=== PATIENT | female | born 1990 | race Caucasian/White ===

== ENCOUNTER 2016-04-17 16:18 | Emergency (ER) | payer BC, OTHER ==
--- NOTE | 2016-04-17 17:55 | DIAGNOSTIC IMAGING REPORT ---
PROCEDURE: US OB 1ST TRIMESTER W/TRANSVAG INDICATION: ABNORMAL BLEEDING TECHNIQUE: Hdz scale, color, and spectral Doppler transabdominal and endovaginal sonographic images of the first trimester gravid uterus were obtained. COMPARISON: None. FINDINGS: TRANSABDOMINAL SCANS: Retroverted uterus. Normal kidneys. TRANSVAGINAL SCANS: The uterus measures 5.1 x 5 x 2.8 cm. Myometrium is unremarkable. Inhomogeneous endometrium measures 12 mm with vascularity suggestive of retained products of conception. Right ovary measures 3.8 x 1.5 x 2.3 cm and left ovary 3.2 x 1 x 1 cm. There is vascular flow to both ovaries. Small amount of free fluid in the pelvis. IMPRESSION: 1. Inhomogeneous vascular endometrium suggestive of retained products of conception 2. Small amount of free fluid the pelvis 3. Results discussed with Jocy Butler, PAC
--- NOTE | 2016-04-17 18:07 | ED ORDER SUMMARY ---
..... Patient: YOMI BOYLE OrderSheet [facility] VisitID: [id number] [place] [address] 26y, F Registration Date/Time: 04/17/2016 ORDER SHEET Weight: 56.6 kg (stated) Allergies: None GENERAL ORDERS: CBC w Diff Urgent (16:41 04/17/2016 EKoroleva P.A.-C) (Ack 16:49 NHouse ER Tech1) (17:02 JBoardley R.N.) CMP Urgent (16:41 04/17/2016 EKoroleva P.A.-C) (Ack 16:49 NHouse ER Tech1) (17:02 JBoardley R.N.) Serum Quantitative Urgent (16:41 04/17/2016 EKoroleva P.A.-C) (Ack 16:49 NHouse ER Tech1) (17:02 JBoardley R.N.) Pelvic Exam Setup (16:41 04/17/2016 EKoroleva P.A.-C) (Ack 16:49 NHouse ER Tech1) (17:02 JBoardley R.N.) US Pelvic Complete w Transvag (in midst of miscairrage) Urgent (16:41 04/17/2016 EKoroleva P.A.-C) (Ack 16:49 NHouse ER Tech1) (Cancelled: Other17:04 EKoroleva P.A.-C) US OB 1st Trimester w Transvag (nov) Urgent (17:05 04/17/2016 EKoroleva P.A.-C) (17:25 JBoardley R.N.) MEDICATION ORDERS: Misoprostol PO (Tablet 100 mcg) 800 mcg (NOW) (18:02 04/17/2016 EKoroleva P.A.-C) (18:40 JBoardley R.N.) Percocet PO 5/325 mg (HIGH ALERT MEDICATION) (18:03 04/17/2016 EKoroleva P.A.-C) (18:40 JBoardley R.N.) IV FLUIDS: IV NS : initial bolus 1000 mL (1000 mL/hr), then 1000 mL/hr for X1 (NOW); Ubaldo (16:40 04/17/2016 Patsy Flores) (Ack 16:42 Ceasar R.N.) (17:04 Ceasar R.N.) ORDER SHEET NOTES: [Electronically signed by Maine Butler P.A.-C (18:16 04/17/2016)] [Electronically signed by Shai Levy R.N. (18:54 04/17/2016)] [Electronically locked/signed by Shai Levy R.N. (18:54 04/17/2016)]
--- NOTE | 2016-04-17 18:07 | ED CLINICAL REPORT ---
Clinical Report - Physicians/Mid Levels [facility] [address] [place] [address] 04/17/2016 16:20 Patient: YOMI BOYLE Time Seen: 1645 Apr 17 2016. Arrived- By private vehicle. Historian- patient and spouse. HISTORY OF PRESENT ILLNESS Chief Complaint: PELVIC PAIN and VAGINAL BLEEDING. Still present. The patient has had abdominal pain. ( Patient reports vaginal bleeding over the last 7 days, after taking Cytotec last Saturday, orally 3 pills for reports of the time, reports she has continued to have cramping cramping. No fevers or chills. Last was repaired was early January, at the time when she was about 7 weeks IUP, possible demise, and miscarriage ensued, doesn't have miscarriage on her own within the week, however did not happen, last decision was made last SAT to start Cytotec.). REVIEW OF SYSTEMS No diarrhea. All systems otherwise negative, except as recorded above. PAST HISTORY Problems: Sick Contact. Spontaneous (Miscarriage). Additional Surgeries: Appendectomy. Medications: Oral. Motrin Oral. Allergies: None. SOCIAL HISTORY Never smoker. No alcohol use or drug use. ADDITIONAL NOTES The nursing notes have been reviewed. PHYSICAL EXAM Vital Signs: 04/17/2016 16:31 BP: 113/69. HR: 54. RR: 16. O2 saturation: 100%. Temp: 98.3 F. Pain level now: 0/10. Appearance: Alert. HEENT: Normal external inspection. ENT: Pharynx normal. Neck: Neck supple. CVS: Heart sounds normal. Respiratory: No respiratory distress. Breath sounds normal. Abdomen: Soft and nontender. No abdominal tenderness, rebound tenderness, distention or organomegaly. Back: No CVA tenderness. : Speculum and bimanual exam performed. External inspection normal. Slight vaginal bleeding, consisting of dark blood. Cervical os closed. No cervical dilation. Bimanual exam normal. Uterus not enlarged. No uterine tenderness. (chaperoned with ELECTRODE CLEANER/ Nurse). Skin: Skin warm. Normal skin color. Neuro: Oriented X 3. LABS, X-RAYS, AND EKG Pelvic Sonogram: IMPRESSION: 1. Inhomogeneous vascular endometrium suggestive of retained products of conception 2. Small amount of free fluid the pelvis 3. Results discussed with Jocy Butler, PAC = Electronically Final signed by:Ton Davis MD 04/17/2016 5:55:36 PM. Laboratory Tests: CBC w Diff: (JAMES: 04/17/2016 16:45) ( MsgRcvd 04/17/2016 17:08) Final results Test Result Flag Units (Reference) WHITE BLOOD COUNT 6.3 K/uL (4.5-11.5) RED BLOOD COUNT 4.50 M/uL (4.00-5.20) HEMOGLOBIN 14.0 gm/dL (12.0-16.0) HEMATOCRIT 40.8 % (36.0-46.0) MEAN CELL VOLUME 91 fL (80-100) MEAN CORPUSCULAR HGB 31 pg (26-34) MEAN CORPUSCULAR HGB CONC 34 g/dL (31-37) RED CELL DISTRIBUTION WIDTH 12.4 % (11.6-14.8) PLATELET COUNT 261 K/uL (150-400) NEUTROPHIL % 56.1 % (50-75) LYMPH % 36.5 % (25-40) MONO % 5.2 % (3-14) EOSINOPHIL % 1.8 % (0-4) BASOPHIL % 0.4 % (0-2) CMP: (JAMES: 04/17/2016 16:45) ( MsgRcvd 04/17/2016 17:24) Final results Test Result Flag Units (Reference) GLUCOSE 124 H mg/dL (70-110) BUN 12 mg/dL (7-18) CREATININE 0.7 mg/dL (0.6-1.3) Estimated GFR >60 mL/min Estimated GFR- >60 mL/min Note: Persistent reduction over 3 months in eGFR<60 mL/min/1.73 m2 defines CKD. Patients with eGFR values>=60 mL/min/1.73 m2 may also have CKD if evidence ofpersistent proteinuria. Additional information may be foundat www.kidney.org. SODIUM 142 mmol/L (136-145) POTASSIUM 3.3 L mmol/L (3.5-5.1) CHLORIDE 104 mmol/L (98-107) CARBON DIOXIDE 26 mmol/L (21-32) CALCIUM 9.4 mg/dL (8.5-10.1) TOTAL PROTEIN 8.1 g/dL (6.4-8.2) ALBUMIN 4.4 g/dL (3.3-5.0) BILIRUBIN, TOTAL 0.3 mg/dL (0.0-1.0) ALKALINE PHOSPHATASE 63 U/L (46-116) AST (SGOT) 22 U/L (15-37) ALT (SGPT) 38 U/L (12-78) BETA HCG, QUANTITATIVE 386 mIU/mL REFERENCE RANGE:Adult Males: <2 mIU/mLNon- Females: <6 mIU/mL Females:Approximate Approximate hCGGestational Age Range (mIU/mL) 0-1 week 0-501-2 weeks 40-3002-3 weeks 100-64056-8 weeks 500-26033-8 months 5,000-200,0002-3 months 10,000-100,0002nd trimester 3,000-50,0003rd trimester 1,000-50,000 . PROGRESS AND PROCEDURES Course of Care: Pt states she is O positive Case discussed with Dr. Davis, who believes products of conception have been retained. Case discussed with Dr. Bernard, who recommended Cytotec orally. Patient is hemodynamically stable. 04/17/2016 16:31 BP: 113/69. HR: 54. RR: 16. O2 saturation: 100%. Temp: 98.3 F. Pain level now: 0/10. Patient is stable. Physical exam findings are unchanged. Symptoms better. Patient/family counseled. Disposition: Discharged. Condition: good. CLINICAL IMPRESSION Incomplete spontaneous (miscarriage). Positive test in the emergency department.No complications. INSTRUCTIONS Do not work for three days. Warnings: Further evaluation is necessary. Prescription Medications: Zofran (orally disintegrating tablets) 4 mg: take 1 orally every 6 hours for 3 days as needed for nausea. Dispense fifteen (15). No refill. Substitution is permissible. Percocet 5 mg/325 mg: take 1 tablet orally every 6 hours as needed for pain. Dispense twenty (20). No refill. Substitution is permissible. Follow-up: Follow up with a specialist Saturday. Understanding of the discharge instructions verbalized. Follow-up with: Dulce Bernard DO, payroll machine operator, , [facility], [address] [place] [address] Follow up Saturday. (Electronically signed by Maine Butler P.A.-C 04/17/2016 18:16)
--- NOTE | 2016-04-17 18:07 | ED ORDER SUMMARY ---
..... Patient: YOMI BOYLE OrderSheet [facility] VisitID: [id number] [place] [address] 26y, F Registration Date/Time: 04/17/2016 ORDER SHEET Weight: 56.6 kg (stated) Allergies: None GENERAL ORDERS: CBC w Diff Urgent (16:41 04/17/2016 EKoroleva P.A.-C) (Ack 16:49 NHouse ER Tech1) (17:02 JBoardley R.N.) CMP Urgent (16:41 04/17/2016 EKoroleva P.A.-C) (Ack 16:49 NHouse ER Tech1) (17:02 JBoardley R.N.) Serum Quantitative Urgent (16:41 04/17/2016 EKoroleva P.A.-C) (Ack 16:49 NHouse ER Tech1) (17:02 JBoardley R.N.) Pelvic Exam Setup (16:41 04/17/2016 EKoroleva P.A.-C) (Ack 16:49 NHouse ER Tech1) (17:02 JBoardley R.N.) US Pelvic Complete w Transvag (in midst of miscairrage) Urgent (16:41 04/17/2016 EKoroleva P.A.-C) (Ack 16:49 NHouse ER Tech1) (Cancelled: Other17:04 EKoroleva P.A.-C) US OB 1st Trimester w Transvag (nov) Urgent (17:05 04/17/2016 EKoroleva P.A.-C) (17:25 JBoardley R.N.) MEDICATION ORDERS: Misoprostol PO (Tablet 100 mcg) 800 mcg (NOW) (18:02 04/17/2016 EKoroleva P.A.-C) (18:40 JBoardley R.N.) Percocet PO 5/325 mg (HIGH ALERT MEDICATION) (18:03 04/17/2016 EKoroleva P.A.-C) (18:40 JBoardley R.N.) IV FLUIDS: IV NS : initial bolus 1000 mL (1000 mL/hr), then 1000 mL/hr for X1 (NOW); Ubaldo (16:40 04/17/2016 Patsy Flores) (Ack 16:42 Ceasar R.N.) (17:04 Ceasar R.N.) ORDER SHEET NOTES: [Electronically signed by Maine Butler P.A.-C (18:16 04/17/2016)] [Electronically signed by Shai Levy R.N. (18:54 04/17/2016)] [Electronically locked/signed by Shai Levy R.N. (18:54 04/17/2016)]
--- NOTE | 2016-04-17 18:07 | ED CLINICAL REPORT ---
Clinical Report - Physicians/Mid Levels [facility] [address] [place] [address] 04/17/2016 16:20 Patient: YOMI BOYLE Time Seen: 1645 Apr 17 2016. Arrived- By private vehicle. Historian- patient and spouse. HISTORY OF PRESENT ILLNESS Chief Complaint: PELVIC PAIN and VAGINAL BLEEDING. Still present. The patient has had abdominal pain. ( Patient reports vaginal bleeding over the last 7 days, after taking Cytotec last Saturday, orally 3 pills for reports of the time, reports she has continued to have cramping cramping. No fevers or chills. Last was repaired was early January, at the time when she was about 7 weeks IUP, possible demise, and miscarriage ensued, doesn't have miscarriage on her own within the week, however did not happen, last decision was made last SAT to start Cytotec.). REVIEW OF SYSTEMS No diarrhea. All systems otherwise negative, except as recorded above. PAST HISTORY Problems: Sick Contact. Spontaneous (Miscarriage). Additional Surgeries: Appendectomy. Medications: Oral. Motrin Oral. Allergies: None. SOCIAL HISTORY Never smoker. No alcohol use or drug use. ADDITIONAL NOTES The nursing notes have been reviewed. PHYSICAL EXAM Vital Signs: 04/17/2016 16:31 BP: 113/69. HR: 54. RR: 16. O2 saturation: 100%. Temp: 98.3 F. Pain level now: 0/10. Appearance: Alert. HEENT: Normal external inspection. ENT: Pharynx normal. Neck: Neck supple. CVS: Heart sounds normal. Respiratory: No respiratory distress. Breath sounds normal. Abdomen: Soft and nontender. No abdominal tenderness, rebound tenderness, distention or organomegaly. Back: No CVA tenderness. : Speculum and bimanual exam performed. External inspection normal. Slight vaginal bleeding, consisting of dark blood. Cervical os closed. No cervical dilation. Bimanual exam normal. Uterus not enlarged. No uterine tenderness. (chaperoned with PIPE CLEANER/ Nurse). Skin: Skin warm. Normal skin color. Neuro: Oriented X 3. LABS, X-RAYS, AND EKG Pelvic Sonogram: IMPRESSION: 1. Inhomogeneous vascular endometrium suggestive of retained products of conception 2. Small amount of free fluid the pelvis 3. Results discussed with Jocy Butler, PAC = Electronically Final signed by:Ton Davis MD 04/17/2016 5:55:36 PM. Laboratory Tests: CBC w Diff: (JAMES: 04/17/2016 16:45) ( MsgRcvd 04/17/2016 17:08) Final results Test Result Flag Units (Reference) WHITE BLOOD COUNT 6.3 K/uL (4.5-11.5) RED BLOOD COUNT 4.50 M/uL (4.00-5.20) HEMOGLOBIN 14.0 gm/dL (12.0-16.0) HEMATOCRIT 40.8 % (36.0-46.0) MEAN CELL VOLUME 91 fL (80-100) MEAN CORPUSCULAR HGB 31 pg (26-34) MEAN CORPUSCULAR HGB CONC 34 g/dL (31-37) RED CELL DISTRIBUTION WIDTH 12.4 % (11.6-14.8) PLATELET COUNT 261 K/uL (150-400) NEUTROPHIL % 56.1 % (50-75) LYMPH % 36.5 % (25-40) MONO % 5.2 % (3-14) EOSINOPHIL % 1.8 % (0-4) BASOPHIL % 0.4 % (0-2) CMP: (JAMES: 04/17/2016 16:45) ( MsgRcvd 04/17/2016 17:24) Final results Test Result Flag Units (Reference) GLUCOSE 124 H mg/dL (70-110) BUN 12 mg/dL (7-18) CREATININE 0.7 mg/dL (0.6-1.3) Estimated GFR >60 mL/min Estimated GFR- >60 mL/min Note: Persistent reduction over 3 months in eGFR<60 mL/min/1.73 m2 defines CKD. Patients with eGFR values>=60 mL/min/1.73 m2 may also have CKD if evidence ofpersistent proteinuria. Additional information may be foundat www.kidney.org. SODIUM 142 mmol/L (136-145) POTASSIUM 3.3 L mmol/L (3.5-5.1) CHLORIDE 104 mmol/L (98-107) CARBON DIOXIDE 26 mmol/L (21-32) CALCIUM 9.4 mg/dL (8.5-10.1) TOTAL PROTEIN 8.1 g/dL (6.4-8.2) ALBUMIN 4.4 g/dL (3.3-5.0) BILIRUBIN, TOTAL 0.3 mg/dL (0.0-1.0) ALKALINE PHOSPHATASE 63 U/L (46-116) AST (SGOT) 22 U/L (15-37) ALT (SGPT) 38 U/L (12-78) BETA HCG, QUANTITATIVE 386 mIU/mL REFERENCE RANGE:Adult Males: <2 mIU/mLNon- Females: <6 mIU/mL Females:Approximate Approximate hCGGestational Age Range (mIU/mL) 0-1 week 0-501-2 weeks 40-3002-3 weeks 100-37404-1 weeks 500-86808-8 months 5,000-200,0002-3 months 10,000-100,0002nd trimester 3,000-50,0003rd trimester 1,000-50,000 . PROGRESS AND PROCEDURES Course of Care: Pt states she is O positive Case discussed with Dr. Davis, who believes products of conception have been retained. Case discussed with Dr. Bernard, who recommended Cytotec orally. Patient is hemodynamically stable. 04/17/2016 16:31 BP: 113/69. HR: 54. RR: 16. O2 saturation: 100%. Temp: 98.3 F. Pain level now: 0/10. Patient is stable. Physical exam findings are unchanged. Symptoms better. Patient/family counseled. Disposition: Discharged. Condition: good. CLINICAL IMPRESSION Incomplete spontaneous (miscarriage). Positive test in the emergency department.No complications. INSTRUCTIONS Do not work for three days. Warnings: Further evaluation is necessary. Prescription Medications: Zofran (orally disintegrating tablets) 4 mg: take 1 orally every 6 hours for 3 days as needed for nausea. Dispense fifteen (15). No refill. Substitution is permissible. Percocet 5 mg/325 mg: take 1 tablet orally every 6 hours as needed for pain. Dispense twenty (20). No refill. Substitution is permissible. Follow-up: Follow up with a specialist Saturday. Understanding of the discharge instructions verbalized. Follow-up with: Dulce Bernard DO, lithographing machine operator, , [facility], [address] [place] [address] Follow up Saturday. (Electronically signed by Maine Butler P.A.-C 04/17/2016 18:16)
--- NOTE | 2016-04-17 18:07 | ED NURSING NOTES ---
Clinical Report - Nurses [facility] [address] [place] [address] 04/17/2016 16:20 Patient: YOMI BOYLE TRIAGE Triage time 16:32. Acuity: LEVEL 3. Chief Complaint: VAGINAL BLEEDING. 16:33 04/17/16. 16:33 04/17/16. Alert. No acute distress. ( Pt states she was diagnosed with a miscarriage 2 weeks ago. Pt states she has been bleeding since and feels lightheaded and dizzy). --16:39 Shai Levy R.N. 16:31 04/17/16. BP: 113/69. HR: 54. RR: 16. O2 saturation: 100% on room air. Temp: 98.3 F (oral). Pain level now: 0/10. --16:39 Shai Levy R.N. Weight: 56.6 kg stated. Height/Length: 64 inches Per Patient. BMI: 21.4. --16:32 Shai Levy R.N. Medications Motrin Oral. --16:35 Shai Levy R.N. Oral. --16:36 Shai Levy R.N. Medication/allergy information source: the patient. --16:39 Shai Levy R.N. Allergies None. --16:36 Shai Levy R.N. History Arrived by private vehicle. Historian: patient. Accompanied by (). Primary physician ([facility]). 16:33 04/17/16. ( Saturday). Treatment TREASURY ASSOCIATE: (Motrin). PAST MEDICAL HX: Immunizations: up-to-date. Last normal menstrual period- 2nd week in January. ( pt going through 1 pad an hour). SOCIAL HX: Never smoker. No alcohol use or drug use. No recent travel. She has had contact with a sick individual. (pt works at a school). No infectious disease exposure. ABUSE ASSESSMENT: No report of abuse. FALL RISK ASSESSMENT: Fall risk assessment completed. No fall risk identified. NUTRITIONAL RISK ASSESSMENT: The nutritional risk assessment revealed no deficiencies. FUNCTIONAL ASSESSMENT: Functional assessment: no impairments noted. LEARNING NEEDS ASSESSMENT: The learning needs assessment revealed no barriers. SKIN INTEGRITY ASSESSMENT: Skin integrity risk assessment completed. No skin integrity risk identified. --16:39 Shai Levy R.N. PROBLEMS: Spontaneous (Miscarriage). --16:36 Shai Levy R.N. ADDITIONAL SURGERIES: Appendectomy. --16:36 Shai Levy R.N. Assessment 16:33 04/17/16. --16:39 Shai Levy R.N. Interventions 16:04/17/16. 16:04/17/16. ID and allergy band on patient. To treatment room. --16:39 Shai Levy R.N. PHYSICAL ASSESSMENT 16:04/17/16. Ambulatory to room. GENERAL / NEURO / PSYCH: Oriented X 4. Appears in no acute distress. RESPIRATORY: Respirations not labored. CVS: Capillary refill less than 2 seconds. SKIN: Skin is warm and dry. --16:33 Shai Levy R.N. NURSING PROGRESS NOTES 16:04/17/16. Patient gowned. Head of bed elevated. Reassurance given. Two patient identifiers checked. Call light placed in reach. Side rails up x 2. Bed placed in lowest position. Brakes of bed on. Brakes of chair on. --16:33 Shai Levy R.N. 16:04/17/16. Patient ready for evaluation- chart flagged and notification provided. --16:33 Shai Levy R.N. 17:03 04/17/2016 Site #1 started via IV in the right antecubital space with an 20g angiocath, with aseptic technique and good blood return; one attempt. Blood drawn: rainbow set. Labeled in the presence of the patient and sent to the lab. Saline lock flushed with 10 mL saline (Type and screen sent to lab). --17:04 Shai Levy R.N. 17:04 04/17/2016 Started bag #1 1000 mL IV Fluids IV NS (Saline); at 1000 mL/hr over 1 minute(s) via site #1 via IV pump. IV patency established. IV site checked: no pain, redness, or swelling. IV flushed thoroughly pre- and post-medication administration. Completed per protocol. --17:04 Shai Levy R.N. 17:04 04/17/2016 Started bag #2 1000 mL IV Fluids IV NS (Saline); at 1000 mL/hr over 1 hour(s) via site #1 via IV pump. Allergies verified and confirmed 5 rights. IV patency established. IV site checked: no pain, redness, or swelling. IV flushed thoroughly pre- and post-medication administration. Completed per protocol. --17:04 Shai Levy R.N. 17:09 04/17/16. ( US at bedside, pelvic completed). --17:09 Shai Levy R.N. 17:25 04/17/16. BP: 115/72. HR: 59. RR: 12. O2 saturation: 100% on room air. --17:25 Shai Levy R.N. 17:25 04/17/16. --17:25 Shai Levy R.N. 17:57 04/17/2016 IV Fluids IV NS Discontinued: bag #1 infused. Total amount infused: 1000 mL. IV patency established. IV site checked: no pain, redness, or swelling. IV flushed thoroughly. --18:27 Shai Levy R.N. 17:57 04/17/2016 IV Fluids IV NS Discontinued: bag #2 infused upon discharge. Total amount infused: 1000 mL. IV patency established. IV site checked: no pain, redness, or swelling. IV flushed thoroughly. --18:27 Shai Levy R.N. 18:40 04/17/2016 MISOPROSTOL PO 800 mcg given. Allergies verified and confirmed 5 rights. --18:40 Shai Levy R.N. 18:40 04/17/2016 Percocet (Oxycodone-Acetaminophen) PO 5/325 mg Tablets 1 tab given. Allergies verified, confirmed 5 rights and sedative warning given to the patient. --18:40 Shai Levy R.N. 18:42 04/17/2016 Site #1 removed upon discharge. Catheter intact. --18:42 Shai Levy R.N. DISPOSITION / DISCHARGE 18:43 04/17/16. Condition at departure: improved. The goals identified in the patient's plan of care were met. No learning barriers present. Discharge instructions provided and reviewed with the patient. Reviewed warnings. Reviewed medication(s). Treatments reviewed. Patient verbalized understanding. Written instructions provided in Welsh. The patient was discharged by the physician. She was discharged home and accompanied by family. She left the Emergency Department ambulatory and via private vehicle. Family member driving. FALL RISK ASSESSMENT: Fall risk assessment completed. No fall risk identified. --18:43 Shai Levy R.N. 18:42 04/17/16. BP: 127/70. HR: 59. RR: 12. O2 saturation: 100% on room air. Temp: 98.2 F (oral). --18:43 Shai Levy R.N. 18:52 04/17/16. Reviewed referral to an animal taxonomist. --18:52 Shai Levy R.N. 18:52 04/17/16. Departure time: 18:52. --18:52 Shai Levy R.N. Locked/Released at 04/17/2016 18:54 by Shai Levy R.N.
--- NOTE | 2016-04-17 18:07 | ED NURSING NOTES ---
Clinical Report - Nurses [facility] [address] [place] [address] 04/17/2016 16:20 Patient: YOMI BOYLE TRIAGE Triage time 16:32. Acuity: LEVEL 3. Chief Complaint: VAGINAL BLEEDING. 16:33 04/17/16. 16:33 04/17/16. Alert. No acute distress. ( Pt states she was diagnosed with a miscarriage 2 weeks ago. Pt states she has been bleeding since and feels lightheaded and dizzy). --16:39 Shai Levy R.N. 16:31 04/17/16. BP: 113/69. HR: 54. RR: 16. O2 saturation: 100% on room air. Temp: 98.3 F (oral). Pain level now: 0/10. --16:39 Shai Levy R.N. Weight: 56.6 kg stated. Height/Length: 64 inches Per Patient. BMI: 21.4. --16:32 Shai Levy R.N. Medications Motrin Oral. --16:35 Shai Levy R.N. Oral. --16:36 Shai Levy R.N. Medication/allergy information source: the patient. --16:39 Shai Levy R.N. Allergies None. --16:36 Shai Levy R.N. History Arrived by private vehicle. Historian: patient. Accompanied by (). Primary physician ([facility] [place]). 16:33 04/17/16. ( Saturday). Treatment COW RIDER: (Motrin). PAST MEDICAL HX: Immunizations: up-to-date. Last normal menstrual period- 2nd week in January. ( pt going through 1 pad an hour). SOCIAL HX: Never smoker. No alcohol use or drug use. No recent travel. She has had contact with a sick individual. (pt works at a school). No infectious disease exposure. ABUSE ASSESSMENT: No report of abuse. FALL RISK ASSESSMENT: Fall risk assessment completed. No fall risk identified. NUTRITIONAL RISK ASSESSMENT: The nutritional risk assessment revealed no deficiencies. FUNCTIONAL ASSESSMENT: Functional assessment: no impairments noted. LEARNING NEEDS ASSESSMENT: The learning needs assessment revealed no barriers. SKIN INTEGRITY ASSESSMENT: Skin integrity risk assessment completed. No skin integrity risk identified. --16:39 Shai Levy R.N. PROBLEMS: Spontaneous (Miscarriage). --16:36 Shai Levy R.N. ADDITIONAL SURGERIES: Appendectomy. --16:36 Shai Levy R.N. Assessment 16:33 04/17/16. --16:39 Shai Levy R.N. Interventions 16:04/17/16. 16:04/17/16. ID and allergy band on patient. To treatment room. --16:39 Shai Levy R.N. PHYSICAL ASSESSMENT 16:04/17/16. Ambulatory to room. GENERAL / NEURO / PSYCH: Oriented X 4. Appears in no acute distress. RESPIRATORY: Respirations not labored. CVS: Capillary refill less than 2 seconds. SKIN: Skin is warm and dry. --16:33 Shai Levy R.N. NURSING PROGRESS NOTES 16:04/17/16. Patient gowned. Head of bed elevated. Reassurance given. Two patient identifiers checked. Call light placed in reach. Side rails up x 2. Bed placed in lowest position. Brakes of bed on. Brakes of chair on. --16:33 Shai Levy R.N. 16:04/17/16. Patient ready for evaluation- chart flagged and notification provided. --16:33 Shai Levy R.N. 17:03 04/17/2016 Site #1 started via IV in the right antecubital space with an 20g angiocath, with aseptic technique and good blood return; one attempt. Blood drawn: rainbow set. Labeled in the presence of the patient and sent to the lab. Saline lock flushed with 10 mL saline (Type and screen sent to lab). --17:04 Shai Levy R.N. 17:04 04/17/2016 Started bag #1 1000 mL IV Fluids IV NS (Saline); at 1000 mL/hr over 1 minute(s) via site #1 via IV pump. IV patency established. IV site checked: no pain, redness, or swelling. IV flushed thoroughly pre- and post-medication administration. Completed per protocol. --17:04 Shai Levy R.N. 17:04 04/17/2016 Started bag #2 1000 mL IV Fluids IV NS (Saline); at 1000 mL/hr over 1 hour(s) via site #1 via IV pump. Allergies verified and confirmed 5 rights. IV patency established. IV site checked: no pain, redness, or swelling. IV flushed thoroughly pre- and post-medication administration. Completed per protocol. --17:04 Shai Levy R.N. 17:09 04/17/16. ( US at bedside, pelvic completed). --17:09 Shai Levy R.N. 17:25 04/17/16. BP: 115/72. HR: 59. RR: 12. O2 saturation: 100% on room air. --17:25 Shai Levy R.N. 17:25 04/17/16. --17:25 Shai Levy R.N. 17:57 04/17/2016 IV Fluids IV NS Discontinued: bag #1 infused. Total amount infused: 1000 mL. IV patency established. IV site checked: no pain, redness, or swelling. IV flushed thoroughly. --18:27 Shai Levy R.N. 17:57 04/17/2016 IV Fluids IV NS Discontinued: bag #2 infused upon discharge. Total amount infused: 1000 mL. IV patency established. IV site checked: no pain, redness, or swelling. IV flushed thoroughly. --18:27 Shai Levy R.N. 18:40 04/17/2016 MISOPROSTOL PO 800 mcg given. Allergies verified and confirmed 5 rights. --18:40 Shai Levy R.N. 18:40 04/17/2016 Percocet (Oxycodone-Acetaminophen) PO 5/325 mg Tablets 1 tab given. Allergies verified, confirmed 5 rights and sedative warning given to the patient. --18:40 Shai Levy R.N. 18:42 04/17/2016 Site #1 removed upon discharge. Catheter intact. --18:42 Shai Levy R.N. DISPOSITION / DISCHARGE 18:43 04/17/16. Condition at departure: improved. The goals identified in the patient's plan of care were met. No learning barriers present. Discharge instructions provided and reviewed with the patient. Reviewed warnings. Reviewed medication(s). Treatments reviewed. Patient verbalized understanding. Written instructions provided in Turkmen. The patient was discharged by the physician. She was discharged home and accompanied by family. She left the Emergency Department ambulatory and via private vehicle. Family member driving. FALL RISK ASSESSMENT: Fall risk assessment completed. No fall risk identified. --18:43 Shai Levy R.N. 18:42 04/17/16. BP: 127/70. HR: 59. RR: 12. O2 saturation: 100% on room air. Temp: 98.2 F (oral). --18:43 Shai Levy R.N. 18:52 04/17/16. Reviewed referral to an make up operator. --18:52 Shai Levy R.N. 18:52 04/17/16. Departure time: 18:52. --18:52 Shai eLvy R.N. Locked/Released at 04/17/2016 18:54 by Shai Levy R.N.
--- NOTE | 2016-04-17 18:54 | ED DISCHARGE INSTRUCTIONS ---
Patient: YOMI BOYLE General Instructions [facility] VisitID: [id number] [place] [address] 26y, F Registration Date/Time: 04/17/2016 Incomplete spontaneous (miscarriage). Positive test in the emergency department.No complications. INSTRUCTIONS Do not work for three days. Warnings: Further evaluation is necessary. Prescription Medications: Zofran (orally disintegrating tablets) 4 mg: take 1 orally every 6 hours for 3 days as needed for nausea. Dispense fifteen (15). No refill. Substitution is permissible. Percocet 5 mg/325 mg: take 1 tablet orally every 6 hours as needed for pain. Dispense twenty (20). No refill. Substitution is permissible. Follow-up: Follow up with a specialist Saturday. Understanding of the discharge instructions verbalized. Follow-up with: Dulce Bernard DO, lithographers printer, , [facility], [address] [place] [address] Follow up Saturday. ADDITIONAL INFORMATION Miscarriage, Spontaneous (Completed) Todays exam shows that your has ended suddenly. While this may be an emotionally difficult time for you, know that it is not an uncommon event. A miscarriage can be due to various causes. These include a problem with the babys chromosomes (genes that carry the information needed for life) or with fertilization or implantation that didnt happen correctly. In most cases no cause can be found. Be assured that this miscarriage was not the result of anything that you did wrong, and it will not interfere with your ability to become in the future. It appears that your miscarriage is complete and all tissue from the has passed. If there are parts of the tissue that remain in the uterus, you will probably have more cramping and bleeding. Home Care: You may resume normal activities if you are not having heavy bleeding or pain. Until the bleeding stops completely and to prevent infection: Do not have sexual intercourse for as long as your healthcare provider tells you. Use sanitary pads instead of tampons. Do not douche. If you feel sadness or grief, it may help to talk about your feelings with family and friends, or with a counselor. Follow Up: Make an appointment to see your doctor in the next one to two weeks for a checkup. If cramping and bleeding return and continue for more than a few days, call your doctor or return here for an exam. The doctor may need to remove remaining tissue from the uterus to stop the bleeding and prevent infection. Or, you may be prescribed medication to take at home to help your body expel the remaining tissue. Note: If you had an ultrasound it will be reviewed by a specialist. You will be notified of any new findings that may affect your care. Get Prompt Medical Attention if any of the following occur: Heavy bleeding (soaking one new pad an hour over three hours) Bleeding that does not stop after ten days Foul-smelling vaginal discharge Fever of 100.4F (38C) or higher, or as directed by your healthcare provider Increasing lower abdominal pain Weakness, dizziness, or fainting Ondansetron Hydrochloride Oral tablet What is this medicine? ONDANSETRON (on SVEN se sal) is used to treat nausea and vomiting caused by chemotherapy. It is also used to prevent or treat nausea and vomiting after surgery. How should I use this medicine? Take this medicine by mouth with a glass of water. Follow the directions on your prescription label. Take your doses at regular intervals. Do not take your medicine more often than directed. Talk to your specimen boss regarding the use of this medicine in children. Special care may be needed. What side effects may I notice from receiving this medicine? Side effects that you should report to your doctor or health neonatal intensive care nurse as soon as possible: allergic reactions like skin rash, itching or hives, swelling of the face, lips or tongue breathing problems dizziness fast or irregular heartbeat feeling faint or lightheaded, falls fever and chills swelling of the hands or feet tightness in the chest Side effects that usually do not require medical attention (report to your doctor or health neonatal intensive care nurse if they continue or are bothersome): constipation or diarrhea headache What may interact with this medicine? Do not take this medicine with any of the following medications: -apomorphine -cisapride -dofetilide -dronedarone -pimozide -thioridazine -ziprasidone This medicine may also interact with the following medications: -carbamazepine -phenytoin -rifampicin -tramadol -other medicines that prolong the QT interval (cause an abnormal heart rhythm) What if I miss a dose? If you miss a dose, take it as soon as you can. If it is almost time for your next dose, take only that dose. Do not take double or extra doses. Where should I keep my medicine? Keep out of the reach of children. Store between 2 and 30 degrees C (36 and 86 degrees F). Throw away any unused medicine after the expiration date. What should I tell my health care provider before I take this medicine? They need to know if you have any of these conditions: heart disease history of irregular heartbeat liver disease low levels of magnesium or potassium in the blood an unusual or allergic reaction to ondansetron, granisetron, other medicines, foods, dyes, or preservatives or trying to get breast-feeding What should I watch for while using this medicine? Check with your doctor or health neonatal intensive care nurse right away if you have any sign of an allergic reaction. Oxycodone Hydrochloride, Acetaminophen Oral tablet What is this medicine? ACETAMINOPHEN; OXYCODONE (a set a MICHAEL melquiades fen; ox i KOE done) is a pain reliever. It is used to treat mild to moderate pain. How should I use this medicine? Take this medicine by mouth with a full glass of water. Follow the directions on the prescription label. Take your medicine at regular intervals. Do not take your medicine more often than directed. Talk to your specimen boss regarding the use of this medicine in children. Special care may be needed. Patients over 65 years old may have a stronger reaction and need a smaller dose. What side effects may I notice from receiving this medicine? Side effects that you should report to your doctor or health neonatal intensive care nurse as soon as possible: allergic reactions like skin rash, itching or hives, swelling of the face, lips, or tongue breathing difficulties, wheezing confusion light headedness or fainting spells severe stomach pain yellowing of the skin or the whites of the eyes Side effects that usually do not require medical attention (report to your doctor or health neonatal intensive care nurse if they continue or are bothersome): dizziness drowsiness nausea vomiting What may interact with this medicine? alcohol antihistamines barbiturates like amobarbital, butalbital, butabarbital, methohexital, pentobarbital, phenobarbital, thiopental, and secobarbital benztropine drugs for bladder problems like solifenacin, trospium, oxybutynin, tolterodine, hyoscyamine, and methscopolamine drugs for breathing problems like ipratropium and tiotropium drugs for certain stomach or intestine problems like propantheline, homatropine methylbromide, glycopyrrolate, atropine, belladonna, and dicyclomine general anesthetics like etomidate, ketamine, nitrous oxide, propofol, desflurane, enflurane, halothane, isoflurane, and sevoflurane medicines for depression, anxiety, or psychotic disturbances medicines for sleep muscle relaxants naltrexone narcotic medicines (opiates) for pain phenothiazines like perphenazine, thioridazine, chlorpromazine, mesoridazine, fluphenazine, prochlorperazine, promazine, and trifluoperazine scopolamine tramadol trihexyphenidyl What if I miss a dose? If you miss a dose, take it as soon as you can. If it is almost time for your next dose, take only that dose. Do not take double or extra doses. Where should I keep my medicine? Keep out of the reach of children. This medicine can be abused. Keep your medicine in a safe place to protect it from theft. Do not share this medicine with anyone. Selling or giving away this medicine is dangerous and against the law. Store at room temperature between 20 and 25 degrees C (68 and 77 degrees F). Keep container tightly closed. Protect from light. This medicine may cause accidental overdose and if it is taken by other adults, children, or pets. Flush any unused medicine down the toilet to reduce the chance of harm. Do not use the medicine after the expiration date. What should I tell my health care provider before I take this medicine? They need to know if you have any of these conditions: brain tumor Crohn's disease, inflammatory bowel disease, or ulcerative colitis drink more than 3 alcohol containing drinks per day drug abuse or addiction head injury heart or circulation problems kidney disease or problems going to the bathroom liver disease lung disease, asthma, or breathing problems an unusual or allergic reaction to acetaminophen, oxycodone, other opioid analgesics, other medicines, foods, dyes, or preservatives or trying to get breast-feeding What should I watch for while using this medicine? Tell your doctor or health neonatal intensive care nurse if your pain does not go away, if it gets worse, or if you have new or a different type of pain. You may develop tolerance to the medicine. Tolerance means that you will need a higher dose of the medication for pain relief. Tolerance is normal and is expected if you take this medicine for a long time. Do not suddenly stop taking your medicine because you may develop a severe reaction. Your body becomes used to the medicine. This does NOT mean you are addicted. Addiction is a behavior related to getting and using a drug for a non-medical reason. If you have pain, you have a medical reason to take pain medicine. Your doctor will tell you how much medicine to take. If your doctor wants you to stop the medicine, the dose will be slowly lowered over time to avoid any side effects. You may get drowsy or dizzy. Do not drive, use machinery, or do anything that needs mental alertness until you know how this medicine affects you. Do not stand or sit up quickly, especially if you are an older patient. This reduces the risk of dizzy or fainting spells. Alcohol may interfere with the effect of this medicine. Avoid alcoholic drinks. There are different types of narcotic medicines (opiates) for pain. If you take more than one type at the same time, you may have more side effects. Give your health care provider a list of all medicines you use. Your doctor will tell you how much medicine to take. Do not take more medicine than directed. Call emergency for help if you have problems breathing. The medicine will cause constipation. Try to have a bowel movement at least every 2 to 3 days. If you do not have a bowel movement for 3 days, call your doctor or health neonatal intensive care nurse. Do not take Tylenol (acetaminophen) or medicines that have acetaminophen with this medicine. Too much acetaminophen can be very dangerous. Many nonprescription medicines contain acetaminophen. Always read the labels carefully to avoid taking more acetaminophen. You have been given the following additional information: Miscarriage, Spontaneous (Completed) Ondansetron Hydrochloride Oral tablet Oxycodone Hydrochloride, Acetaminophen Oral tablet Do not work for three days. (Electronically signed by Maine Butler P.A.-C 04/17/2016 18:16)
--- NOTE | 2016-04-17 18:54 | ED DISCHARGE INSTRUCTIONS ---
Patient: YOMI BOYLE General Instructions [facility] VisitID: [id number] [place] [address] 26y, F Registration Date/Time: 04/17/2016 Incomplete spontaneous (miscarriage). Positive test in the emergency department.No complications. INSTRUCTIONS Do not work for three days. Warnings: Further evaluation is necessary. Prescription Medications: Zofran (orally disintegrating tablets) 4 mg: take 1 orally every 6 hours for 3 days as needed for nausea. Dispense fifteen (15). No refill. Substitution is permissible. Percocet 5 mg/325 mg: take 1 tablet orally every 6 hours as needed for pain. Dispense twenty (20). No refill. Substitution is permissible. Follow-up: Follow up with a specialist Saturday. Understanding of the discharge instructions verbalized. Follow-up with: Dulce Bernard DO, directional bore operator, , [facility], [address] [place] [address] Follow up Saturday. ADDITIONAL INFORMATION Miscarriage, Spontaneous (Completed) Todays exam shows that your has ended suddenly. While this may be an emotionally difficult time for you, know that it is not an uncommon event. A miscarriage can be due to various causes. These include a problem with the babys chromosomes (genes that carry the information needed for life) or with fertilization or implantation that didnt happen correctly. In most cases no cause can be found. Be assured that this miscarriage was not the result of anything that you did wrong, and it will not interfere with your ability to become in the future. It appears that your miscarriage is complete and all tissue from the has passed. If there are parts of the tissue that remain in the uterus, you will probably have more cramping and bleeding. Home Care: You may resume normal activities if you are not having heavy bleeding or pain. Until the bleeding stops completely and to prevent infection: Do not have sexual intercourse for as long as your healthcare provider tells you. Use sanitary pads instead of tampons. Do not douche. If you feel sadness or grief, it may help to talk about your feelings with family and friends, or with a counselor. Follow Up: Make an appointment to see your doctor in the next one to two weeks for a checkup. If cramping and bleeding return and continue for more than a few days, call your doctor or return here for an exam. The doctor may need to remove remaining tissue from the uterus to stop the bleeding and prevent infection. Or, you may be prescribed medication to take at home to help your body expel the remaining tissue. Note: If you had an ultrasound it will be reviewed by a specialist. You will be notified of any new findings that may affect your care. Get Prompt Medical Attention if any of the following occur: Heavy bleeding (soaking one new pad an hour over three hours) Bleeding that does not stop after ten days Foul-smelling vaginal discharge Fever of 100.4F (38C) or higher, or as directed by your healthcare provider Increasing lower abdominal pain Weakness, dizziness, or fainting Ondansetron Hydrochloride Oral tablet What is this medicine? ONDANSETRON (on SVEN se sal) is used to treat nausea and vomiting caused by chemotherapy. It is also used to prevent or treat nausea and vomiting after surgery. How should I use this medicine? Take this medicine by mouth with a glass of water. Follow the directions on your prescription label. Take your doses at regular intervals. Do not take your medicine more often than directed. Talk to your grocery clerk stocking regarding the use of this medicine in children. Special care may be needed. What side effects may I notice from receiving this medicine? Side effects that you should report to your doctor or health childcare aide as soon as possible: allergic reactions like skin rash, itching or hives, swelling of the face, lips or tongue breathing problems dizziness fast or irregular heartbeat feeling faint or lightheaded, falls fever and chills swelling of the hands or feet tightness in the chest Side effects that usually do not require medical attention (report to your doctor or health childcare aide if they continue or are bothersome): constipation or diarrhea headache What may interact with this medicine? Do not take this medicine with any of the following medications: -apomorphine -cisapride -dofetilide -dronedarone -pimozide -thioridazine -ziprasidone This medicine may also interact with the following medications: -carbamazepine -phenytoin -rifampicin -tramadol -other medicines that prolong the QT interval (cause an abnormal heart rhythm) What if I miss a dose? If you miss a dose, take it as soon as you can. If it is almost time for your next dose, take only that dose. Do not take double or extra doses. Where should I keep my medicine? Keep out of the reach of children. Store between 2 and 30 degrees C (36 and 86 degrees F). Throw away any unused medicine after the expiration date. What should I tell my health care provider before I take this medicine? They need to know if you have any of these conditions: heart disease history of irregular heartbeat liver disease low levels of magnesium or potassium in the blood an unusual or allergic reaction to ondansetron, granisetron, other medicines, foods, dyes, or preservatives or trying to get breast-feeding What should I watch for while using this medicine? Check with your doctor or health childcare aide right away if you have any sign of an allergic reaction. Oxycodone Hydrochloride, Acetaminophen Oral tablet What is this medicine? ACETAMINOPHEN; OXYCODONE (a set a MICHAEL melquiades fen; ox i KOE done) is a pain reliever. It is used to treat mild to moderate pain. How should I use this medicine? Take this medicine by mouth with a full glass of water. Follow the directions on the prescription label. Take your medicine at regular intervals. Do not take your medicine more often than directed. Talk to your grocery clerk stocking regarding the use of this medicine in children. Special care may be needed. Patients over 65 years old may have a stronger reaction and need a smaller dose. What side effects may I notice from receiving this medicine? Side effects that you should report to your doctor or health childcare aide as soon as possible: allergic reactions like skin rash, itching or hives, swelling of the face, lips, or tongue breathing difficulties, wheezing confusion light headedness or fainting spells severe stomach pain yellowing of the skin or the whites of the eyes Side effects that usually do not require medical attention (report to your doctor or health childcare aide if they continue or are bothersome): dizziness drowsiness nausea vomiting What may interact with this medicine? alcohol antihistamines barbiturates like amobarbital, butalbital, butabarbital, methohexital, pentobarbital, phenobarbital, thiopental, and secobarbital benztropine drugs for bladder problems like solifenacin, trospium, oxybutynin, tolterodine, hyoscyamine, and methscopolamine drugs for breathing problems like ipratropium and tiotropium drugs for certain stomach or intestine problems like propantheline, homatropine methylbromide, glycopyrrolate, atropine, belladonna, and dicyclomine general anesthetics like etomidate, ketamine, nitrous oxide, propofol, desflurane, enflurane, halothane, isoflurane, and sevoflurane medicines for depression, anxiety, or psychotic disturbances medicines for sleep muscle relaxants naltrexone narcotic medicines (opiates) for pain phenothiazines like perphenazine, thioridazine, chlorpromazine, mesoridazine, fluphenazine, prochlorperazine, promazine, and trifluoperazine scopolamine tramadol trihexyphenidyl What if I miss a dose? If you miss a dose, take it as soon as you can. If it is almost time for your next dose, take only that dose. Do not take double or extra doses. Where should I keep my medicine? Keep out of the reach of children. This medicine can be abused. Keep your medicine in a safe place to protect it from theft. Do not share this medicine with anyone. Selling or giving away this medicine is dangerous and against the law. Store at room temperature between 20 and 25 degrees C (68 and 77 degrees F). Keep container tightly closed. Protect from light. This medicine may cause accidental overdose and if it is taken by other adults, children, or pets. Flush any unused medicine down the toilet to reduce the chance of harm. Do not use the medicine after the expiration date. What should I tell my health care provider before I take this medicine? They need to know if you have any of these conditions: brain tumor Crohn's disease, inflammatory bowel disease, or ulcerative colitis drink more than 3 alcohol containing drinks per day drug abuse or addiction head injury heart or circulation problems kidney disease or problems going to the bathroom liver disease lung disease, asthma, or breathing problems an unusual or allergic reaction to acetaminophen, oxycodone, other opioid analgesics, other medicines, foods, dyes, or preservatives or trying to get breast-feeding What should I watch for while using this medicine? Tell your doctor or health childcare aide if your pain does not go away, if it gets worse, or if you have new or a different type of pain. You may develop tolerance to the medicine. Tolerance means that you will need a higher dose of the medication for pain relief. Tolerance is normal and is expected if you take this medicine for a long time. Do not suddenly stop taking your medicine because you may develop a severe reaction. Your body becomes used to the medicine. This does NOT mean you are addicted. Addiction is a behavior related to getting and using a drug for a non-medical reason. If you have pain, you have a medical reason to take pain medicine. Your doctor will tell you how much medicine to take. If your doctor wants you to stop the medicine, the dose will be slowly lowered over time to avoid any side effects. You may get drowsy or dizzy. Do not drive, use machinery, or do anything that needs mental alertness until you know how this medicine affects you. Do not stand or sit up quickly, especially if you are an older patient. This reduces the risk of dizzy or fainting spells. Alcohol may interfere with the effect of this medicine. Avoid alcoholic drinks. There are different types of narcotic medicines (opiates) for pain. If you take more than one type at the same time, you may have more side effects. Give your health care provider a list of all medicines you use. Your doctor will tell you how much medicine to take. Do not take more medicine than directed. Call emergency for help if you have problems breathing. The medicine will cause constipation. Try to have a bowel movement at least every 2 to 3 days. If you do not have a bowel movement for 3 days, call your doctor or health childcare aide. Do not take Tylenol (acetaminophen) or medicines that have acetaminophen with this medicine. Too much acetaminophen can be very dangerous. Many nonprescription medicines contain acetaminophen. Always read the labels carefully to avoid taking more acetaminophen. You have been given the following additional information: Miscarriage, Spontaneous (Completed) Ondansetron Hydrochloride Oral tablet Oxycodone Hydrochloride, Acetaminophen Oral tablet Do not work for three days. (Electronically signed by Maine Butler P.A.-C 04/17/2016 18:16)
--- NOTE | 2016-04-17 18:54 | ED MAR SUMMARY ---
..... Medication Administration Record [facility] [address] [place] [address] Patient: YOMI BOYLE Visit ID: [id number] 26y, F Weight: 56.6 kg Height/Length: 64 in BMI: 21.4 ALLERGIES: None Start 17:04 04/17/2016 Shai Levy R.N., Stop 17:57 04/17/2016 Shai Levy R.N. Medication Administered: IV NS (SALINE), Dose: IV Fluids over 1 minute(s), Rate: 1000 mL/hr, Dispensed: 1000 mL bag, Site: #1 right AC. Medication Ordered: IV NS : initial bolus 1000 mL (1000 mL/hr), then 1000 mL/hr for X1 (NOW); Ubaldo. Start 17:04/17/2016 Shai Levy R.N., Stop 17:57 04/17/2016 Shai Levy R.N. Medication Administered: IV NS (SALINE), Dose: IV Fluids over 1 hour(s), Rate: 1000 mL/hr, Dispensed: 1000 mL bag, Site: #1 right AC. Medication Ordered: IV NS : initial bolus 1000 mL (1000 mL/hr), then 1000 mL/hr for X1 (NOW); Ubaldo. Given 18:40 04/17/2016 Shai Levy R.N. Medication Administered: MISOPROSTOL [PO], Dose: 800 mcg PO. Medication Ordered: Misoprostol PO (Tablet 100 mcg) 800 mcg (NOW). Given 18:40 04/17/2016 Shai Levy R.N. Medication Administered: PERCOCET [PO] (OXYCODONE-ACETAMINOPHEN), Dose: 1 tab 5/325 mg Tablets PO. Medication Ordered: Percocet PO 5/325 mg (HIGH ALERT MEDICATION).
--- NOTE | 2016-04-17 18:54 | ED MED RECONCILIATION SUMMARY ---
Patient: YOMI BOYLE Medication Reconciliation Report [facility] VisitID: [id number] [address] [place] [address] 26y, F Registration Date/Time: 04/17/2016 Weight: 56.6 kg Height/Length: 64 in. BMI: 21.4 ALLERGIES: None The patient's Home Medications are listed below: THE FOLLOWING MEDICATIONS NEED TO BE RECONCILED: Motrin Oral Oral The source(s) of the original Home Medication information: patient The following Medications were given to the patient in the Emergency Department: IV NS IV Fluids bolus 0, then 1000 mL/hr, administered: 04/17/2016 5:04:00 PM IV NS IV Fluids bolus 0, then 1000 mL/hr, administered: 04/17/2016 5:04:00 PM MISOPROSTOL [PO] PO 800 mcg, administered: 04/17/2016 6:40:00 PM Percocet [PO] PO 1 tab, administered: 04/17/2016 6:40:00 PM The following Medications were prescribed to the patient: Zofran (orally disintegrating tablets) 4 mg: take 1 orally every 6 hours for 3 days as needed for nausea. Dispense fifteen (15). No refill. Substitution is permissible. -- Maine Butler, P.ALakhwinder Percocet 5 mg/325 mg: take 1 tablet orally every 6 hours as needed for pain. Dispense twenty (20). No refill. Substitution is permissible. -- Maine Butler P.AGrey-Mechelle
--- NOTE | 2016-04-17 18:54 | ED MAR SUMMARY ---
..... Medication Administration Record [facility] [address] [place] [address] Patient: YOMI BOYLE Visit ID: [id number] 26y, F Weight: 56.6 kg Height/Length: 64 in BMI: 21.4 ALLERGIES: None Start 17:04 04/17/2016 Shai Levy R.N., Stop 17:57 04/17/2016 Shai Levy R.N. Medication Administered: IV NS (SALINE), Dose: IV Fluids over 1 minute(s), Rate: 1000 mL/hr, Dispensed: 1000 mL bag, Site: #1 right AC. Medication Ordered: IV NS : initial bolus 1000 mL (1000 mL/hr), then 1000 mL/hr for X1 (NOW); Ubaldo. Start 17:04/17/2016 Shai Levy R.N., Stop 17:57 04/17/2016 Shai Levy R.N. Medication Administered: IV NS (SALINE), Dose: IV Fluids over 1 hour(s), Rate: 1000 mL/hr, Dispensed: 1000 mL bag, Site: #1 right AC. Medication Ordered: IV NS : initial bolus 1000 mL (1000 mL/hr), then 1000 mL/hr for X1 (NOW); Ubaldo. Given 18:40 04/17/2016 Shai Levy R.N. Medication Administered: MISOPROSTOL [PO], Dose: 800 mcg PO. Medication Ordered: Misoprostol PO (Tablet 100 mcg) 800 mcg (NOW). Given 18:40 04/17/2016 Shai Levy R.N. Medication Administered: PERCOCET [PO] (OXYCODONE-ACETAMINOPHEN), Dose: 1 tab 5/325 mg Tablets PO. Medication Ordered: Percocet PO 5/325 mg (HIGH ALERT MEDICATION).
--- NOTE | 2016-04-17 18:54 | ED MED RECONCILIATION SUMMARY ---
Patient: YOMI BOYLE Medication Reconciliation Report [facility] VisitID: [id number] [address] [place] [address] 26y, F Registration Date/Time: 04/17/2016 Weight: 56.6 kg Height/Length: 64 in. BMI: 21.4 ALLERGIES: None The patient's Home Medications are listed below: THE FOLLOWING MEDICATIONS NEED TO BE RECONCILED: Motrin Oral Oral The source(s) of the original Home Medication information: patient The following Medications were given to the patient in the Emergency Department: IV NS IV Fluids bolus 0, then 1000 mL/hr, administered: 04/17/2016 5:04:00 PM IV NS IV Fluids bolus 0, then 1000 mL/hr, administered: 04/17/2016 5:04:00 PM MISOPROSTOL [PO] PO 800 mcg, administered: 04/17/2016 6:40:00 PM Percocet [PO] PO 1 tab, administered: 04/17/2016 6:40:00 PM The following Medications were prescribed to the patient: Zofran (orally disintegrating tablets) 4 mg: take 1 orally every 6 hours for 3 days as needed for nausea. Dispense fifteen (15). No refill. Substitution is permissible. -- Maine Butler, P.ALakhwinder Percocet 5 mg/325 mg: take 1 tablet orally every 6 hours as needed for pain. Dispense twenty (20). No refill. Substitution is permissible. -- Maine Butler P.AGrey-Mechelle
== END 2016-04-17 18:52 | disposition home or self-care (01) ==
LOC: ED SRH 16:18
DX: O03.4 Incomplete spontaneous abortion without complication (principal); Z3A.01 Less than 8 weeks gestation of pregnancy
CPT/HCPCS: 90100; 90197; 95059